=== PATIENT | male | born 1945 | race Caucasian/White ===

== ENCOUNTER → 2017-08-15 | Outpatient (CLI) | payer BC, MEDICARE ==
--- NOTE | 2017-08-15 16:34 | RADIOLOGY REPORT PS360 ---
CHEST(2 VIEWS-NOT PORTABLE) COMPARISON: PA and lateral chest 12/24/2014 HISTORY: Shortness of breath, known chronic lung changes TECHNIQUE: PA and lateral chest FINDINGS: This is a slightly poor inspiration. There is been definite interval progression of diffuse chronic interstitial changes bilaterally but more prominent right lung than left. There is mild generalized cardiomegaly but there is no obvious evidence of failure. There is no pleural fluid. IMPRESSION: Interval progression of diffuse interstitial pulmonary fibrotic changes more prominently involving the right lung than left, consider a follow-up CT scan the chest for better evaluation of apparent interstitial lung disease.
[2017-08-15 16:53] LABS: HEMOGLOBIN 12.6 g/dL (14.1-18.0)
[2017-08-15 16:54] LABS: LYMPH # 1.5 K/mm3 (0.7-4.5); LYMPH % 11.8 % (10-50)
[2017-08-15 20:05] LABS: BUN 14 mg/dL (7-18)
[2017-08-15 21:27] LABS: GFR (ESTIMATED) 74 ML/MIN (>60)
== END ==
LOC: LAB 15:03
PROVIDERS: Family Medicine
DX: R06.02 Shortness of breath (principal); I51.9 Heart disease, unspecified

== ENCOUNTER → 2017-08-31 | Outpatient (CLI) | payer BC, MEDICARE ==
[~2017-08-31] MED LIST: ALBUTEROL2 PUFFS/17 IN; ALBUTEROL2.5 MG/NEB IN; AUGMENTIN1 TA1 PO; DICLOFENAC 50MG50 MG PO; MEDROL 4MG TABLE4 MG PO; MEDROL 4MG. DOSE4 MG PO; MOTRIN 400MG.400 MG PO
--- NOTE | 2017-09-01 13:26 | RADIOLOGY REPORT PS360 ---
PROCEDURE: 2-D M-mode and color Doppler study INDICATIONS FOR THE TEST: Chest pain COPD Heart Murmur Tobacco Smoking+ Palpitations Fatigue Syncope Edema+ Hypertension+Diabetes Mellitus Rheumatic Fever SOB+KHAN+Obesity+Hyperlipidemia Family History HD Additional History CAD (1 stent) PATIENT INFORMATION HEIGHT: 72 WEIGHT:245 GENDER: Male B/P:131/70 2-D/M-MODE INTERPRETATION: 2-D MEASUREMENTS OBSERVED VALUES IN CMS Right Ventricular Dimension (RVDd) 2.4 Interventricular Septum (Thickness)(IVsd) 1.2 Left Ventricular Internal Dimensions(LVIDd) 4.6 Left Ventricular Posterior Wall (Thickness)(LVPWd) 1.2 Aortic Root 3.1 Aortic Cusp Separation 2.3 Left Atrial Dimensions (LAD) 4.8 2D 1. Left atrium is mildly enlarged, left ventricle is normal size, there is mild concentric left ventricular hypertrophy present, visually estimated ejection fraction 55% with no obvious regional wall motion abnormality. 2. The right atrium is mildly enlarged, right ventricle is normal size and contractility. 3. The aortic valve is minimally thickened and fibrosed, there is no aortic stenosis. 4. The mitral valve leaflets are minimally thickened and calcified. 5. The tricuspid valve is grossly normal. 6. The pulmonic valve is poorly visualized. 7. No significant pericardial effusion noted DOPPLER INTERROGATION: Doppler interrogation of the aortic, mitral and tricuspid valvular presence of mild mitral and tricuspid regurgitation, tricuspid and jet velocity is insufficient for calculation of the right ventricular systolic pressure, diastolic parameters are inconclusive. CONCLUSION: 1. Biatrial enlargement, normal left ventricular size, mild concentric left ventricular hypertrophy, visually estimated ejection fraction 55% with no obvious regional wall motion abnormality. Diastolic parameters are inconclusive. 2. Mild mitral and tricuspid regurgitation. 3. No significant pericardial effusion noted.
== END ==
LOC: RT 12:35
DX: R06.02 Shortness of breath (principal); I51.9 Heart disease, unspecified